=== PATIENT | male | born 2005 | race Two or more races ===

== ENCOUNTER → 2024-04-19 | Emergency (ER) | payer OTHER ==
[~2024-04-19] VITALS: Ht 175.3 cm; Wt 61.2 kg
[~2024-04-19] MED LIST: BENZ-13 PO
[2024-04-19 22:30] VITALS: BP 129/71; TEMP 98.4; O2SAT 98
== END | disposition home or self-care (01) ==
LOC: ER 21:51
DX: J02.9 Acute pharyngitis, unspecified (principal); B34.9 Viral infection, unspecified; R19.7 Diarrhea, unspecified